=== PATIENT | male | born 1995 | race Asian ===

== ENCOUNTER 2019-05-09 20:21 | Emergency (ER) | payer BC ==
[~2019-05-09] VITALS: Ht 172.7 cm; Wt 72.7 kg
[2019-05-09 22:30] VITALS: BP 125/60
== END 2019-05-09 22:46 | disposition home or self-care (01) ==
LOC: EMS 20:56
DX: S93.402A Sprain of unspecified ligament of left ankle, initial encounter (principal); F17.200 Nicotine dependence, unspecified, uncomplicated; W18.40XA Slipping, tripping and stumbling without falling, unspecified, initial encounter; Y93.21 Activity, ice skating; Y92.89 Other specified places as the place of occurrence of the external cause; Y99.8 Other external cause status